=== PATIENT | female | born 1970 | race Hispanic/Latino ===

== ENCOUNTER 2020-07-25 20:57 | Emergency (ER) | payer OTHER | END 2020-07-25 22:43 | disposition home or self-care (01) | LOC: CSHERS 20:57 | DX: Z76.0 Encounter for issue of repeat prescription (principal) | CPT/HCPCS: 99281 ==

== ENCOUNTER 2021-04-22 12:42 | Emergency (ER) | payer OTHER, SELFPAY | END 2021-04-22 13:37 | disposition home or self-care (01) | LOC: CSHERS 12:42 | DX: Z76.0 Encounter for issue of repeat prescription (principal); E10.9 Type 1 diabetes mellitus without complications | CPT/HCPCS: 99281 ==

== ENCOUNTER 2022-03-01 09:29 | Emergency (ER) | payer OTHER | END 2022-03-01 10:49 | disposition home or self-care (01) | LOC: CSHERS 09:29 | DX: S90.32XA Contusion of left foot, initial encounter (principal); I10 Essential (primary) hypertension; E11.9 Type 2 diabetes mellitus without complications; W22.09XA Striking against other stationary object, initial encounter ==